=== PATIENT | female | born 1975 | race Two or more races ===

== ENCOUNTER → 2021-03-07 | Emergency (ER) | payer MEDICAID ==
[~2021-03-07] VITALS: Ht 157.5 cm; Wt 65.8 kg
[~2021-03-07] MED LIST: HYDR-3972 PO; hydrALAZINE HCL IV 20 MG VIAL ONE
[2021-03-07] MEDS: hydrALAZINE HCL IV 20 MG VIAL IV ONE (13:21)
[2021-03-07 13:27] LABS: BASOPHILS # (AUTO) 0.1 K/uL (0.0-0.2); EOSINOPHILS % (AUTO) 4.2 % (0.0-6.0); HEMATOCRIT 31 % (33-45); HEMOGLOBIN 9.5 g/dL (11.5-14.8); MEAN CORPUSCULAR HGB CONC 31 g/dl (31.0-36.0); MEAN CORPUSCULAR VOLUME 72 fL (82-100); MONOCYTES # (AUTO) 0.4 K/uL (0.1-1.30); MONOCYTES % (AUTO) 8.3 % (2.0-12.0); NEUTROPHILS % (AUTO) 62.5 % (43.0-81.0); PLATELET COUNT (AUTO) 354 K/uL (150-450); WHITE BLOOD COUNT (AUTO) 4.7 K/uL (4.3-11.0)
[2021-03-07 13:29] LABS: CALCIUM, SERUM 8.6 mg/dL (8.5-10.1); CARBON DIOXIDE 29 mmol/L (21-32); CHLORIDE 103 mmol/L (98-107); GLUCOSE 98 mg/dL (74-106); POTASSIUM 3.6 mmol/L (3.5-5.1); SODIUM SERUM 139 mmol/L (136-145); UREA NITROGEN, BLOOD 11 mg/dL (7-18)
[2021-03-07 13:35] LABS: ALANINE AMINOTRANSFERASE 15 U/L (12-78); ALBUMIN 4.1 g/dL (3.4-5.0); ALKALINE PHOSPHATASE 76 U/L (46-116); ASPARTATE AMINOTRANSFERASE 13 U/L (15-37); BILIRUBIN,TOTAL 0.2 mg/dL (0.2-1.0); TOTAL PROTEIN, SERUM 8.5 g/dL (6.4-8.2)
[2021-03-07 14:41] VITALS: BP 150/100
--- NOTE | 2021-03-07 14:42 | NUR ---
Pt states "feel better". Denies FERRERA. Patient discharged to home in stable condition. Written and verbal after care instructions given. Patient verbalizes understanding of instruction.
[2021-03-07 17:17] LABS: EOSINOPHILS % (MANUAL) 5 % (0-4); LYMPHOCYTES % (MANUAL) 20 % (16-48); MONOCYTES % (MANUAL) 10 % (0-11.0); NEUTROPHILS % (MANUAL) 65 (42-76)
== END | disposition home or self-care (01) ==
LOC: ER 12:59
DX: I10 Essential (primary) hypertension (principal); R51.9 Headache, unspecified
CPT/HCPCS: 36415; 70450; 80053; 84484; 84703; 85007; 85025; 96374; 99284; J0360; J7040

== ENCOUNTER 2021-03-31 10:47 | Emergency (ER) | payer MEDICAID ==
[~2021-03-31] VITALS: Ht 162.6 cm; Wt 64.4 kg
[~2021-03-31 10:47] MED LIST changes: -hydrALAZINE HCL IV 20 MG VIAL ONE
[2021-03-31 10:53] VITALS: BP 127/80
[2021-03-31] MEDS ORDERED: FAMO-131 PO (10:58)
[2021-03-31] MEDS ORDERED: DIPH-530 PO (10:58)
[2021-03-31] MEDS ORDERED: PRED50TA PO (10:58)
--- NOTE | 2021-03-31 11:43 | NUR ---
Patient discharged to home in stable condition. Written and verbal after care instructions given. Patient verbalizes understanding of instruction.
== END 2021-03-31 11:43 | disposition home or self-care (01) ==
LOC: ER 10:47
DX: L50.9 Urticaria, unspecified (principal); I10 Essential (primary) hypertension; Z79.899 Other long term (current) drug therapy

== ENCOUNTER 2021-04-07 17:34 | Emergency (ER) | payer MEDICAID ==
[~2021-04-07] VITALS: Ht 162.6 cm; Wt 64.4 kg
[~2021-04-07 17:34] MED LIST changes: +DIPH-530 PO; +FAMO-131 PO; +PRED50TA PO
--- NOTE | 2021-04-07 18:00 | NUR ---
CALLED TO TRIAGE,NO ANSWER
[2021-04-07 18:26] VITALS: BP 161/110
[2021-04-07] MEDS ORDERED: BENZ-13 PO (20:01)
[2021-04-07] MEDS ORDERED: ALBU8.5H8 INH (20:01)
== END 2021-04-07 20:24 | disposition home or self-care (01) ==
LOC: ER 17:34
DX: U07.1 COVID-19 (principal); I10 Essential (primary) hypertension; Z79.899 Other long term (current) drug therapy
CPT/HCPCS: 71045-TC

== ENCOUNTER 2021-11-18 16:18 | Emergency (ER) | payer MEDICAID ==
[~2021-11-18] VITALS: Ht 162.6 cm; Wt 61.2 kg
[~2021-11-18 16:18] MED LIST changes: +ALBU8.5H8 INH; +BENZ-13 PO
--- NOTE | 2021-11-18 16:32 | NUR ---
BIBS THIS 46YO FEMALE PATIENT WITH CC OF Been Having FERRERA on/off x1year. Now have pressure/pain in chest SCALE OF 5/10 AND NUMBNESS AND PAIN ON LEFT SHOULDER RADIATING TO LEFT NECK AND BACK OF THE HEAD. PATIENT IS ALERT, ORIENTED X4. VITALS CHECKED. PLACED COMFORTABLY IN BED.
--- NOTE | 2021-11-18 16:50 | NUR ---
SEEN BY BILL FARFAN AT BEDSIDE
[2021-11-18] MEDS ORDERED: ASPIRIN 81 MG TAB.CHEW PO ONE (17:00)
[2021-11-18] MEDS ORDERED: CYCLOBENZAPRINE 10 MG TABLET PO ONE (17:00)
[2021-11-18 17:27] LABS: BASOPHILS # (AUTO) 0.1 K/uL (0.0-0.2); BASOPHILS % (AUTO) 1.3 % (0.0-2.0); EOSINOPHILS % (AUTO) 3.9 % (0.0-6.0); HEMATOCRIT 36 % (33-45); HEMOGLOBIN 11.7 g/dL (11.5-14.8); LYMPHOCYTES # (AUTO) 1.1 K/uL (0.8-4.8); LYMPHOCYTES % (AUTO) 21.8 % (20.0-44.0); MEAN CORPUSCULAR HGB CONC 32 g/dl (31.0-36.0); MEAN CORPUSCULAR VOLUME 89 fL (82-100); MONOCYTES # (AUTO) 0.4 K/uL (0.1-1.30); MONOCYTES % (AUTO) 7.8 % (2.0-12.0); NEUTROPHILS # (AUTO) 3.2 K/uL (1.8-8.9); NEUTROPHILS % (AUTO) 65.2 % (43.0-81.0); PLATELET COUNT (AUTO) 275 K/uL (150-450); RED BLOOD CELL COUNT(AUTO) 4.08 MIL/uL (4.0-5.2); WHITE BLOOD COUNT (AUTO) 4.9 K/uL (4.3-11.0)
--- NOTE | 2021-11-18 17:43 | NUR ---
PT SIGNED WAIVER THAT SHE IS NOT .
--- NOTE | 2021-11-18 17:43 | NUR ---
BROUGHT TO RAD DEPT FOR XRAY AND CT SCAN
[2021-11-18] MEDS ORDERED: CYCLOBENZAPRINE 10 MG TABLET ONE (18:13)
[2021-11-18] MEDS ORDERED: ASPIRIN 81 MG TAB.CHEW ONE ×2 (18:13→18:39)
[2021-11-18 18:26] LABS: ALANINE AMINOTRANSFERASE 20 U/L (12-78); ALBUMIN 3.7 g/dL (3.4-5.0); ALKALINE PHOSPHATASE 69 U/L (46-116); ASPARTATE AMINOTRANSFERASE 15 U/L (15-37); BILIRUBIN,DIRECT 0.1 mg/dL (0.0-0.2); BILIRUBIN,TOTAL 0.3 mg/dL (0.2-1.0); CALCIUM, SERUM 8.4 mg/dL (8.5-10.1); CARBON DIOXIDE 29 mmol/L (21-32); CHLORIDE 106 mmol/L (98-107); CREATININE 0.9 mg/dL (0.6-1.3); GLUCOSE 94 mg/dL (74-106); POTASSIUM 3.4 mmol/L (3.5-5.1); SODIUM SERUM 141 mmol/L (136-145); TOTAL PROTEIN, SERUM 7.7 g/dL (6.4-8.2); UREA NITROGEN, BLOOD 19 mg/dL (7-18)
[2021-11-18 19:08] LABS: BILIRUBIN,URINE NEGATIVE (NEGATIVE); COLOR,URINE YELLOW (YELLOW); LEUKOCYTE ESTERASE ,URINE NEGATIVE (NEGATIVE); NITRITE, URINE NEGATIVE (NEGATIVE); PROTEIN,URINE NEGATIVE (NEGATIVE); UGLUCOSE NEGATIVE (NEGATIVE); UROBILINOGEN,URINE 0.2 EU/dL (0.2)
[2021-11-18 20:00] LABS: BACTERIA,URINE Many /HPF (None Seen); RBC,URINE 0-2 /HPF (0-2); SQUAMOUS EPITHELIAL CELL,UR Moderate /HPF (None Seen)
[2021-11-18] MEDS ORDERED: CYCL5TAB PO (20:02)
[2021-11-18] MEDS ORDERED: NAPR-1303 PO (20:02)
--- NOTE | 2021-11-18 20:20 | NUR ---
IV CANNULA REMOVED
--- NOTE | 2021-11-18 20:25 | NUR ---
Patient discharged to home in stable condition. Written and verbal after care instructions given. Patient verbalizes understanding of instruction.
[2021-11-18 20:29] VITALS: BP 124/76
== END 2021-11-18 20:34 | disposition home or self-care (01) ==
LOC: ER 16:20
DX: R07.89 Other chest pain (principal); M62.838 Other muscle spasm; M47.9 Spondylosis, unspecified; G44.209 Tension-type headache, unspecified, not intractable; K21.9 Gastro-esophageal reflux disease without esophagitis; F41.9 Anxiety disorder, unspecified; I10 Essential (primary) hypertension; Z79.899 Other long term (current) drug therapy
CPT/HCPCS: 36415; 71045-TC; 72050-TC; 80048-TC; 80076-TC; 81001; 83690-TC; 83880; 84484-TC; 84703-TC; 85025-TC; 87086-TC

== ENCOUNTER 2022-06-10 13:04 | Emergency (ER) | payer SELFPAY ==
[~2022-06-10] VITALS: Ht 162.6 cm; Wt 60.8 kg
[~2022-06-10 13:04] MED LIST changes: +CYCL5TAB PO; +NAPR-1303 PO
[2022-06-10] MEDS ORDERED: ACETAMINOPHEN 325 MG TABLET PO ONE (13:30)
[2022-06-10] MEDS ORDERED: IBUPROFEN 600 MG TABLET PO ONE (13:30)
[2022-06-10] MEDS ORDERED: ACETAMINOPHEN 325 MG TABLET ONE (13:36)
[2022-06-10] MEDS ORDERED: IBUPROFEN 600 MG TABLET ONE (13:37)
[2022-06-10] MEDS ORDERED: LISINOPRIL (10MG) 10 MG TABLET PO STA (14:27)
[2022-06-10] MEDS ORDERED: IBUP-1955 PO (14:31)
[2022-06-10] MEDS ORDERED: LISI10TA29 PO (14:31)
[2022-06-10] MEDS ORDERED: LISINOPRIL (20MG) 20 MG TABLET ONE (14:35)
[2022-06-10 14:49] VITALS: BP 137/88
--- NOTE | 2022-06-10 14:49 | NUR ---
Patient discharged to home in stable condition. Written and verbal after care instructions given. Patient verbalizes understanding of instruction.IV removed. Catheter intact and site benign. Pressure and 4x4 applied to site. No bleeding noted.
== END 2022-06-10 14:49 | disposition home or self-care (01) ==
LOC: ER 13:20
DX: G44.209 Tension-type headache, unspecified, not intractable (principal); I10 Essential (primary) hypertension; Z91.14 Patient's other noncompliance with medication regimen; Z79.899 Other long term (current) drug therapy

== ENCOUNTER 2022-12-05 17:31 | Emergency (ER) | payer MEDICAID ==
[~2022-12-05] VITALS: Ht 162.6 cm; Wt 61.7 kg
[~2022-12-05 17:31] MED LIST changes: +IBUP-1955 PO; +LISI10TA29 PO
--- NOTE | 2022-12-05 18:00 | NUR ---
BIBS FOR HEADACHE/DIZZINESS. A/O X3, TOLERATING WELL ON ROOM AIR.
--- NOTE | 2022-12-05 18:20 | NUR ---
PATIENT BP HIGH, MADE AWARE
--- NOTE | 2022-12-05 18:50 | NUR ---
BLOOD SAMPLES COLLECTED
[2022-12-05 19:36] LABS: CALCIUM, SERUM 8.5 mg/dL (8.5-10.1); CARBON DIOXIDE 27 mmol/L (21-32); CHLORIDE 105 mmol/L (98-107); CREATININE 0.9 mg/dL (0.6-1.3); GLUCOSE 98 mg/dL (74-106); POTASSIUM 3.9 mmol/L (3.5-5.1); SODIUM SERUM 139 mmol/L (136-145); UREA NITROGEN, BLOOD 14 mg/dL (7-18)
[2022-12-05 20:02] LABS: BASOPHILS # (AUTO) 0.1 K/uL (0.0-0.2); BASOPHILS % (AUTO) 1.5 % (0.0-2.0); EOSINOPHILS % (AUTO) 3.7 % (0.0-6.0); HEMATOCRIT 31 % (33-45); HEMOGLOBIN 9.7 g/dL (11.5-14.8); LYMPHOCYTES # (AUTO) 1.3 K/uL (0.8-4.8); LYMPHOCYTES % (AUTO) 19.9 % (20.0-44.0); MEAN CORPUSCULAR HGB CONC 31 g/dl (31.0-36.0); MEAN CORPUSCULAR VOLUME 73 fL (82-100); MONOCYTES # (AUTO) 0.6 K/uL (0.1-1.30); MONOCYTES % (AUTO) 9.5 % (2.0-12.0); NEUTROPHILS # (AUTO) 4.2 K/uL (1.8-8.9); NEUTROPHILS % (AUTO) 65.4 % (43.0-81.0); PLATELET COUNT (AUTO) 322 K/uL (150-450); RED BLOOD CELL COUNT(AUTO) 4.29 MIL/uL (4.0-5.2); WHITE BLOOD COUNT (AUTO) 6.4 K/uL (4.3-11.0)
[2022-12-05 20:48] LABS: LYMPHOCYTES % (MANUAL) 20 % (16-48); MONOCYTES % (MANUAL) 4 % (0-11.0); NEUTROPHILS % (MANUAL) 76 (42-76)
[2022-12-05] MEDS ORDERED: AMLO-212 PO (21:17)
[2022-12-05] MEDS ORDERED: OMEP20CA15 PO (21:17)
[2022-12-05 21:25] VITALS: BP 154/88
--- NOTE | 2022-12-05 21:27 | NUR ---
Patient discharged to home in stable condition. Written and verbal after care instructions given. Patient verbalizes understanding of instruction.
== END 2022-12-05 21:27 | disposition home or self-care (01) ==
LOC: ER 17:44
DX: R42 Dizziness and giddiness (principal); D50.9 Iron deficiency anemia, unspecified; I10 Essential (primary) hypertension; R05.9 Cough, unspecified; Z79.899 Other long term (current) drug therapy
CPT/HCPCS: 36415; 80048-TC; 84484-TC; 85025-TC

== ENCOUNTER 2024-02-05 11:40 | Emergency (ER) | payer MEDICAID ==
[~2024-02-05] VITALS: Ht 162.6 cm; Wt 66.2 kg
[~2024-02-05 11:40] MED LIST changes: +AMLO-212 PO; +OMEP20CA15 PO
[2024-02-05 13:23] LABS: BASOPHILS # (AUTO) 0.2 K/uL (0.0-0.2); EOSINOPHILS # (AUTO) 0.2 K/uL (0.0-0.7); EOSINOPHILS % (AUTO) 4.3 % (0.0-6.0); HEMATOCRIT 26 % (33-45); LYMPHOCYTES # (AUTO) 1.1 K/uL (0.8-4.8); LYMPHOCYTES % (AUTO) 27.9 % (20.0-44.0); MEAN CORPUSCULAR HEMOGLOBIN 21 PG (26.0-33.0); MEAN CORPUSCULAR HGB CONC 31 g/dl (31.0-36.0); MEAN CORPUSCULAR VOLUME 67 fL (82-100); MONOCYTES # (AUTO) 0.4 K/uL (0.1-1.30); MONOCYTES % (AUTO) 9.6 % (2.0-12.0); NEUTROPHILS # (AUTO) 2.1 K/uL (1.8-8.9); NEUTROPHILS % (AUTO) 54.2 % (43.0-81.0); PLATELET COUNT (AUTO) 567 K/uL (150-450); RED BLOOD CELL COUNT(AUTO) 3.87 MIL/uL (4.0-5.2); RED CELL DISTRIBUTION WIDTH 16.9 % (11.5-15.0)
[2024-02-05 13:36] LABS: CREATININE 0.7 mg/dL (0.6-1.3)
[2024-02-05 13:37] LABS: PREGNANCY TEST URINE QUAL NEGATIVE (NEGATIVE)
[2024-02-05 13:40] LABS: INR 1.03 (0.91-1.10); PARTIAL THROMBOPLASTIN TIME 23.9 SEC (24.3-34.3); PROTHROMBIN TIME 10.9 SECS (9.2-11.1)
[2024-02-05 14:10] VITALS: BP 165/90; TEMP 98.2; O2SAT 99
== END 2024-02-05 14:12 | disposition home or self-care (01) ==
LOC: ER 11:40
DX: D64.9 Anemia, unspecified (principal); N92.0 Excessive and frequent menstruation with regular cycle; I10 Essential (primary) hypertension; R10.2 Pelvic and perineal pain; Z79.899 Other long term (current) drug therapy
CPT/HCPCS: 36415; 76856-TC; 80048-TC; 84703-TC; 85025-TC; 85730-TC; 86850-TC

== ENCOUNTER 2024-07-24 19:16 | Emergency (ER) | payer MEDICAID ==
[~2024-07-24] VITALS: Ht 165.1 cm; Wt 65.8 kg
[2024-07-24 21:15] LABS: BASOPHILS # (AUTO) 0.1 K/uL (0.0-0.2); BASOPHILS % (AUTO) 1.5 % (0.0-2.0); EOSINOPHILS # (AUTO) 0.2 K/uL (0.0-0.7); EOSINOPHILS % (AUTO) 2.1 % (0.0-6.0); HEMATOCRIT 27 % (33-45); HEMOGLOBIN 8.2 g/dL (11.5-14.8); LYMPHOCYTES # (AUTO) 1.4 K/uL (0.8-4.8); LYMPHOCYTES % (AUTO) 18.4 % (20.0-44.0); MEAN CORPUSCULAR HEMOGLOBIN 20 PG (26.0-33.0); MEAN CORPUSCULAR HGB CONC 30 g/dl (31.0-36.0); MEAN CORPUSCULAR VOLUME 67 fL (82-100); MONOCYTES # (AUTO) 0.6 K/uL (0.1-1.30); MONOCYTES % (AUTO) 7.8 % (2.0-12.0); NEUTROPHILS # (AUTO) 5.1 K/uL (1.8-8.9); NEUTROPHILS % (AUTO) 70.2 % (43.0-81.0); PLATELET COUNT (AUTO) 445 K/uL (150-450); RED BLOOD CELL COUNT(AUTO) 4.06 MIL/uL (4.0-5.2); RED CELL DISTRIBUTION WIDTH 19.6 % (11.5-15.0); WHITE BLOOD COUNT (AUTO) 7.3 K/uL (4.3-11.0)
[2024-07-24 21:17] LABS: APPEARANCE,URINE Clear (CLEAR); BILIRUBIN,URINE Negative (NEGATIVE); BLOOD, URINE Trace-lysed Ery/uL (NEGATIVE); COLOR,URINE YELLOW (YELLOW); KETONES,URINE 15 mg/dL (NEGATIVE); LEUKOCYTE ESTERASE ,URINE Negative (NEGATIVE); NITRITE, URINE Negative (NEGATIVE); PH,URINE 5.5 (5.0-8.0); PROTEIN,URINE Negative (NEGATIVE); UGLUCOSE Negative (NEGATIVE); UROBILINOGEN,URINE 0.2 EU/dL (0.2)
[2024-07-24 21:23] LABS: PREGNANCY TEST URINE QUAL NEGATIVE (NEGATIVE)
[2024-07-24 21:25] LABS: CALCIUM, SERUM 8.7 mg/dL (8.5-10.1); CREATININE 0.8 mg/dL (0.6-1.3); POTASSIUM 3.7 mmol/L (3.5-5.1)
[2024-07-24 21:31] LABS: ALBUMIN 3.9 g/dL (3.4-5.0); BILIRUBIN,TOTAL 0.3 mg/dL (0.2-1.0); TOTAL PROTEIN, SERUM 8.5 g/dL (6.4-8.2)
[2024-07-24 21:43] LABS: BAND % (MANUAL) 1 % (0.0-5.0); EOSINOPHILS % (MANUAL) 4 % (0-4); LYMPHOCYTES % (MANUAL) 15 % (16-48); MONOCYTES % (MANUAL) 2 % (0-11.0); NEUTROPHILS % (MANUAL) 78 (42-76); PLATELET ESTIMATE ADEQUATE
[2024-07-24 21:46] LABS: ANISOCYTOSIS 1+; HYPOCHROMASIA 1+; STOMATOCYTES 1+
[2024-07-24 21:49] LABS: ADD URINE CULTURE NO; BACTERIA,URINE Few /HPF (None Seen); RBC,URINE 0-2 /HPF (0-2)
[2024-07-24] MEDS ORDERED: NAPR-1009 PO (23:27)
[2024-07-24] MEDS ORDERED: NITR100C6 PO (23:29)
[2024-07-24 23:55] VITALS: BP 132/88; TEMP 98; O2SAT 99
== END 2024-07-24 23:55 | disposition home or self-care (01) ==
LOC: ER 19:20
DX: N83.292 Other ovarian cyst, left side (principal); D64.9 Anemia, unspecified; I10 Essential (primary) hypertension; Z79.52 Long term (current) use of systemic steroids; Z79.899 Other long term (current) drug therapy
CPT/HCPCS: 36415; 76856-TC; 80048-TC; 80076-TC; 81001; 83690-TC; 84703-TC; 85025-TC

== ENCOUNTER 2024-11-03 21:31 | Emergency (ER) | payer MEDICAID ==
[~2024-11-03] VITALS: Ht 162.6 cm; Wt 65.8 kg
[~2024-11-03 21:31] MED LIST changes: +NAPR-1009 PO; +NITR100C6 PO
[2024-11-03 21:54] VITALS: BP 161/114; TEMP 98.4; O2SAT 100
[2024-11-03] MEDS ORDERED: ALBU18HF2 INH (22:39)
[2024-11-03] MEDS ORDERED: BENZ-13 PO (22:39)
[2024-11-03] MEDS ORDERED: IBUP-1953 PO (22:39)
[2024-11-03] MEDS ORDERED: ACET325C7 PO (22:39)
== END 2024-11-03 22:47 | disposition home or self-care (01) ==
LOC: ER 21:33
DX: R05.9 Cough, unspecified (principal); R09.81 Nasal congestion; J02.9 Acute pharyngitis, unspecified; I10 Essential (primary) hypertension; Z79.52 Long term (current) use of systemic steroids; Z79.899 Other long term (current) drug therapy

== ENCOUNTER 2025-02-27 22:01 | Emergency (ER) | payer MEDICAID ==
[~2025-02-27] VITALS: Ht 167.6 cm; Wt 72.6 kg
[~2025-02-27 22:01] MED LIST changes: +ACET325C7 PO; +ALBU18HF2 INH; +IBUP-1953 PO
[2025-02-27 23:25] VITALS: BP 144/90; TEMP 98.4; O2SAT 98
== END 2025-02-27 23:26 | disposition home or self-care (01) ==
LOC: ER 22:10
DX: N63.21 Unspecified lump in the left breast, upper outer quadrant (principal); N64.52 Nipple discharge; I10 Essential (primary) hypertension; Z79.52 Long term (current) use of systemic steroids; Z79.899 Other long term (current) drug therapy